=== PATIENT | male | born 2000 | race Caucasian/White ===

== ENCOUNTER 2022-03-13 16:25 | Emergency (ER) | payer OTHER ==
[~2022-03-13] VITALS: Ht 185.4 cm; Wt 68.0 kg
[2022-03-13 17:34] LABS: URINE WBC 0 /hpf (0-3)
[2022-03-13 17:35] LABS: BASO # 0.04 K/mm3 (0.02-0.10); EOS # 0.02 K/mm3 (0.04-0.40); EOS % 0.2 % (0.0-4.0); HEMATOCRIT 44.7 % (36.0-47.0); HEMOGLOBIN 14.8 g/dL (12.5-16.1); LYMPH# 1.82 K/mm3 (1.50-4.00); MEAN CELL VOLUME 91 fl (78-95); MEAN CORPUSCULAR HEMOGLOBIN 30 pg (26-32); MEAN CORPUSCULAR HGB CONC 33 g/dL (33-37); MEAN PLATELET VOLUME 10.7 fl (7.4-10.4); MONO # 0.48 K/mm3 (0.20-0.80); NEU # 6.09 K/mm3 (1.40-6.50); PLATELET COUNT 225 K/mm3 (130-400); RED BLOOD COUNT 4.92 M/mm3 (4.20-5.60); RED CELL DISTRIBUTION WIDTH 11.4 % (11.5-14.5); WHITE BLOOD COUNT 8.5 K/mm3 (4.8-10.8)
[2022-03-13 17:41] LABS: ALBUMIN 5.2 g/dL (3.5-5.0); POTASSIUM 4.2 mmol/L (3.5-5.1); SODIUM 142 mmol/L (136-145)
[2022-03-13 17:42] LABS: CALCIUM 9.9 mg/dL (8.3-10.5)
[2022-03-13 17:44] LABS: GLUCOSE 105 mg/dL (75-110); TOTAL PROTEIN 8.1 g/dL (6.4-8.3)
[2022-03-13 17:45] LABS: CARBON DIOXIDE 24 mmol/L (22-29); TOTAL BILIRUBIN 0.5 mg/dL (0.2-1.2)
[2022-03-13 17:49] LABS: AST-SGOT 16 U/L (5-34)
[2022-03-13 17:50] LABS: ALT/SGPT 10 U/L (0-55)
[2022-03-13 17:53] LABS: ACETAMINOPHEN < 1 ug/mL; ALCOHOL IN-HOUSE < 10 mg/dL (<10)
[2022-03-13 17:56] LABS: URINE APPEARANCE CLEAR; URINE BILIRUBIN NEGATIVE (NEGATIVE); URINE COLOR YELLOW; URINE GLUCOSE NEGATIVE (NEGATIVE); URINE KETONE NEGATIVE (NEGATIVE); URINE PROTEIN(semi-quant) NEGATIVE (NEGATIVE)
[2022-03-13 17:58] LABS: URINE BLOOD NEGATIVE (NEGATIVE); URINE LEUKOCYTE ESTERASE NEGATIVE (NEGATIVE); URINE NITRATE NEGATIVE (NEGATIVE); URINE UROBILINOGEN NORMAL (NORMAL)
[2022-03-14 01:48] VITALS: BP 145/78
== END 2022-03-14 01:49 | disposition home or self-care (01) ==
LOC: ED 16:25
PROVIDERS: Nurse Practitioner
DX: F39 Unspecified mood [affective] disorder (principal); Z20.822 Contact with and (suspected) exposure to COVID-19